=== PATIENT | male | born 1965 | race Caucasian/White ===

== ENCOUNTER 2022-02-22 00:40 | Emergency (ER) | payer OTHER ==
[2022-02-22 01:54] LABS: BASOPHIL 0.6 % (0-2); EOSINOPHIL 0.9 % (0-5); HCT 39.9 % (42.0-52.0); HGB 13.6 g/dl (13.2-18.0); LYMPHOCYTE 14.9 % (15-48); MCH 29.3 pg (25.0-31.0); MCHC 34.1 g/dL (32.0-36.0); MONOCYTE 6.5 % (0-12); MPV 9.7 fL (6.0-9.5); NEUTROPHIL 76.7 % (41-80); NRBC 0; PLT 216 K/uL (150-400); RBC 4.64 M/uL (4.70-6.00); RDW 11.8 % (11.5-14.0); WBC 11.8 K/uL (4.0-10.5)
[2022-02-22 01:55] LABS: BILIRUBIN NEGATIVE (NEGATIVE); BLOOD NEGATIVE Ery/uL (NEGATIVE); CLARITY CLEAR (CLEAR); COLOR YELLOW (YELLOW); GLUCOSE (U) NORMAL (NORMAL); LEUKOCYTES TRACE Leu/uL (NEGATIVE); NITRITE NEGATIVE (NEGATIVE); PROTEIN NEGATIVE (NEGATIVE); SPECIFIC GRAVITY <=1.005 (1.001-1.030); UROBILINOGEN 0.2 mg/dL (0.2-1.0)
[2022-02-22 02:06] LABS: BACTERIA TRACE
[2022-02-22 02:11] LABS: INR 1.02 (0.9-1.2); PROTHROMBIN TIME 12.8 SECONDS (11.8-13.4); PTT 25.9 SECONDS (24.4-34.7)
[2022-02-22 02:16] LABS: ALBUMIN 3.8 g/dL (3.4-5.0); BILIRUBIN - TOTAL 0.3 mg/dL (0.2-1.0); BUN/CREAT RATIO (CALC) 7.8 RATIO; CREATININE 1.29 mg/dL (0.67-1.17); GLOBULIN (CALCULATION) 3.3 g/dL; POTASSIUM 3.7 mmol/L (3.5-5.1); TOTAL PROTEIN 7.1 g/dL (6.4-8.2)
[2022-02-22 04:18] LABS: FT4 (FREE T4) 1.2 ng/dL (0.76-1.46)
[2022-02-22] MEDS ORDERED: NORVASC 10MG TA10 MG PO (04:33)
[2022-02-22] MEDS ORDERED: ATARAX25 MG PO (04:33)
== END 2022-02-22 04:53 | disposition home or self-care (01) ==
LOC: FER 00:40
PROVIDERS: Internal Medicine
DX: F41.0 Panic disorder [episodic paroxysmal anxiety] (principal); R00.2 Palpitations; I13.10 Hypertensive heart and chronic kidney disease without heart failure, with stage 1 through stage 4 chronic kidney disease, or unspecified chronic kidney disease; N18.31 Chronic kidney disease, stage 3a; F17.210 Nicotine dependence, cigarettes, uncomplicated
CPT/HCPCS: 36415; 71045; 80053; 81001; 84439; 84443; 84484; 85025; 85610; 85730; 93005

== ENCOUNTER 2022-02-24 00:56 | Emergency (ER) | payer OTHER ==
[~2022-02-24 00:56] MED LIST: ATARAX25 MG PO; NORVASC 10MG TA10 MG PO
[2022-02-24 03:08] LABS: BASOPHIL 0.6 % (0-2); EOSINOPHIL 0.8 % (0-5); HGB 14.2 g/dl (13.2-18.0); LYMPHOCYTE 18.1 % (15-48); MCH 29.8 pg (25.0-31.0); MCHC 33.8 g/dL (32.0-36.0); MCV 88.1 fL (78.0-100.0); MONOCYTE 8.8 % (0-12); NEUTROPHIL 71.5 % (41-80); NRBC 0; PLT 240 K/uL (150-400); RBC 4.77 M/uL (4.70-6.00); RDW 11.9 % (11.5-14.0); WBC 13.3 K/uL (4.0-10.5)
[2022-02-24 03:41] LABS: CREATININE 1.07 mg/dL (0.67-1.17); FT4 (FREE T4) 1.2 ng/dL (0.76-1.46); POTASSIUM 3.6 mmol/L (3.5-5.1)
[2022-02-24] MEDS ORDERED: PRINIVIL10 MG PO (04:03)
== END 2022-02-24 04:10 | disposition home or self-care (01) ==
LOC: FER 00:56
PROVIDERS: Internal Medicine
DX: I10 Essential (primary) hypertension (principal); F17.210 Nicotine dependence, cigarettes, uncomplicated
CPT/HCPCS: 36415; 80048; 84439; 84443; 84484; 85025; 93005